=== PATIENT | female | born 1940 | race Caucasian/White ===

== ENCOUNTER 2017-04-11 07:09 | Day surgery (SDC) | payer MEDICARE, OTHER ==
[~2017-04-11 07:09] MED LIST: Cefuroxime 10 MG/ML SYRINGE EYELF SCH; Lidocaine 1% PF 2 ML SDV INJECT SCH; Pilocarpine 4% Ophth Soln 15 ML Bot EYELF SCH
[2017-04-11] MEDS: Polymyxin B/Trimethoprim 10 ML Bottle EYELF SCH ×3 (07:26→08:56)
[2017-04-11] MEDS: Brimonidine 0.2% Ophth Soln 5 ML Bottle EYELF SCH ×3 (07:31→08:56)
--- NOTE | 2017-04-11 07:31 | PCM.PREANE ---
Preanesthetic Assessment - Anesthesia/Transfusion/Family Hx Anesthesia History: No Prior Anesthesia Family History of Anesthesia Reaction: No Transfusion History: No Prior Transfusion(s) - Review of Systems General: No Symptoms Pulmonary: No Symptoms Cardiovascular: Other (HTN) Gastrointestinal: No Symptoms Neurological: No Symptoms Other: Reports: Diabetes (173 at 0728), Thyroid Problems - Physical Assessment NPO Status Date: 04/10/17 NPO Status Time: 18:30 Pulse: 92 O2 Sat by Pulse Oximetry: 97 Respiratory Rate: 16 Blood Pressure: 137/80 Temperature: 35.8 C Weight: 79.832 kg ASA Class: 2 Mental Status: Alert & Oriented x3 Dentition: Reports: Normal Dentition, Dentures (upper), Edentulous Thyro-Mental Finger Breadths: 3 Mouth Opening Finger Breadths: 3 ROM/Head Extension: Full Lungs: Clear to Auscultation, Normal Respiratory Effort Cardiovascular: Regular Rate, Regular Rhythm - Allergies Allergies/Adverse Reactions: Allergies Allergy/AdvReac Type Severity Reaction Status Date / Time No Known Allergies Allergy Verified 04/10/17 15:14 - Blood Blood Available: No Product(s) Available: None - Anesthesia Plan Pre-Op Medication Ordered: None - Acknowledgements Anesthesia Type Planned: MAC Pt an Appropriate Candidate for the Planned Anesthesia: Yes Alternatives and Risks of Anesthesia Discussed w Pt/Guardian: Yes Pt/Guardian Understands and Agrees with Anesthesia Plan: Yes PreAnesthesia Questionnaire - HOME MEDS Home Medications: Home Meds Furosemide [Lasix] 20 mg PO DAILY 04/10/17 [History] Hydrochlorothiazide [Hydrochlorothiazide] 25 mg PO DAILY 04/10/17 [History] Levothyroxine Sodium 88 mcg PO DAILY 04/10/17 [History] Lisinopril [Lisinopril] 40 mg PO DAILY 04/10/17 [History] atorvaSTATin [Lipitor] 10 mg PO DAILY 04/10/17 [History] metFORMIN HCl [Metformin HCl] 1,000 mg PO BID 04/10/17 [History] - CURRENT (IN HOUSE) MEDS Current Meds: Current Medications Brimonidine Tartrate (Alphagan 0.2% Ophth Soln) 0 ml EYELF ASDIRECTED [facility]OG[facility] Stop: 04/11/17 18:00 Cefuroxime Sodium (Zinacef) 0 mg EYELF ASDIRECTED [facility] Stop: 04/11/17 18:00 Lidocaine HCl (Xylocaine-Mpf 1%) 10 ml INJECT ASDIRECTED [facility] Stop: 04/11/17 18:00 Phenylephrine HCl (Sanjay-Synephrine 2.5% Ophth Soln) 0 ml EYELF ASDIRECTED [facility] Stop: 04/11/17 18:00 Pilocarpine HCl (Pilocar 4% Ophth Soln) 0 ml EYELF ASDIRECTED [facility] Stop: 04/11/17 18:00 Polymyxin/Trimethoprim Sulfate (Polytrim Ophth Soln) 0 ml EYELF ASDIRECTED [facility] Stop: 04/11/17 18:00 Tetracaine HCl (Tetracaine 0.5% Steri-Unit Kathie) 0 ml EYELF ASDIRECTED [facility] Stop: 04/11/17 18:00 Tropicamide (Mydriacyl 1% Ophth Soln) 0 ml EYELF ASDIRECTED [facility] Stop: 04/11/17 18:00
[2017-04-11] MEDS: Phenylephrine 2.5% Ophth Soln 2 ML Bot EYELF SCH ×5 (07:35→08:35)
[2017-04-11] MEDS: Tetracaine HCl/PF 0.5% 4 ML Bottle EYELF SCH ×2 (08:24→08:48)
--- NOTE | 2017-04-11 08:56 | PCM48HPAN ---
Post Anesthesia Note - EVALUATION WITHIN 48HRS OF ANESTHETIC Vital Signs in Normal Range: Yes Patient Participated in Evaluation: Yes Respiratory Function Stable: Yes Airway Patent: Yes Cardiovascular Function Stable: Yes Hydration Status Stable: Yes Pain Control Satisfactory: Yes Nausea and Vomiting Control Satisfactory: Yes Mental Status Recovered: Yes
== END 2017-04-11 09:09 | disposition home or self-care (01) ==
LOC: JD.SDS 07:09
PROVIDERS: ATTEND Ophthalmology
DX: E11.36 Type 2 diabetes mellitus with diabetic cataract (principal); I10 Essential (primary) hypertension; E03.9 Hypothyroidism, unspecified; M19.90 Unspecified osteoarthritis, unspecified site; Z79.899 Other long term (current) drug therapy; Z79.84 Long term (current) use of oral hypoglycemic drugs; Z90.49 Acquired absence of other specified parts of digestive tract
CPT/HCPCS: 82962; A9270-GY; C1780

== ENCOUNTER 2017-05-04 08:14 | Day surgery (SDC) | payer MEDICARE, OTHER ==
[~2017-05-04 08:14] MED LIST changes: -Cefuroxime 10 MG/ML SYRINGE EYELF SCH; +Cefuroxime 10 MG/ML SYRINGE EYERT SCH; -Pilocarpine 4% Ophth Soln 15 ML Bot EYELF SCH; +Pilocarpine 4% Ophth Soln 15 ML Bot EYERT SCH
[2017-05-04] MEDS: Polymyxin B/Trimethoprim 10 ML Bottle EYERT SCH ×3 (08:52→10:27)
[2017-05-04] MEDS: Brimonidine 0.2% Ophth Soln 5 ML Bottle EYERT SCH ×3 (08:57→10:27)
[2017-05-04] MEDS: Phenylephrine 2.5% Ophth Soln 2 ML Bot EYERT SCH ×5 (09:03→10:13)
[2017-05-04] MEDS: Tetracaine HCl/PF 0.5% 4 ML Bottle EYERT SCH ×2 (09:57→10:20)
--- NOTE | 2017-05-04 10:09 | PCM.PREANE ---
Preanesthetic Assessment - Anesthesia/Transfusion/Family Hx Anesthesia History: Prior Anesthesia Without Reaction Family History of Anesthesia Reaction: No Transfusion History: No Prior Transfusion(s) Intubation History: Unknown - Review of Systems General: No Symptoms Pulmonary: No Symptoms Cardiovascular: No Symptoms (HTN), Lightheadedness (on occasion) Gastrointestinal: No Symptoms Neurological: No Symptoms Other: Reports: Diabetes (06:30 blood sugar= 149), Thyroid Problems (hypothyroid ) - Physical Assessment NPO Status Date: 05/03/17 NPO Status Time: 18:30 Pulse: 71 O2 Sat by Pulse Oximetry: 97 Respiratory Rate: 16 Blood Pressure: 137/69 Vital Signs: Last Vital Signs Temp 36.5 C 05/04/17 08:40 Pulse 71 05/04/17 08:40 Resp 16 05/04/17 08:40 BP 137/69 05/04/17 08:40 Pulse Ox 97 05/04/17 08:40 Height: 1.68 m Weight: 80.739 kg ASA Class: 2 Mental Status: Alert & Oriented x3 Airway Class: Mallampati = 2 Dentition: Reports: Dentures Thyro-Mental Finger Breadths: 3 Mouth Opening Finger Breadths: 3 ROM/Head Extension: Full Lungs: Clear to Auscultation, Normal Respiratory Effort Cardiovascular: Regular Rate, Regular Rhythm, No Murmurs - Allergies Allergies/Adverse Reactions: Allergies Allergy/AdvReac Type Severity Reaction Status Date / Time No Known Allergies Allergy Verified 05/03/17 14:15 - Anesthesia Plan Pre-Op Medication Ordered: None - Acknowledgements Anesthesia Type Planned: MAC Pt an Appropriate Candidate for the Planned Anesthesia: Yes Alternatives and Risks of Anesthesia Discussed w Pt/Guardian: Yes Pt/Guardian Understands and Agrees with Anesthesia Plan: Yes PreAnesthesia Questionnaire - HOME MEDS Home Medications: Home Meds Hydrochlorothiazide [Hydrochlorothiazide] 25 mg PO DAILY 04/10/17 [History] Levothyroxine Sodium 88 mcg PO DAILY 04/10/17 [History] Lisinopril [Lisinopril] 40 mg PO DAILY 04/10/17 [History] atorvaSTATin [Lipitor] 10 mg PO DAILY 04/10/17 [History] metFORMIN HCl [Metformin HCl] 1,000 mg PO BID 04/10/17 [History] - CURRENT (IN HOUSE) MEDS Current Meds: Current Medications Brimonidine Tartrate (Alphagan 0.2% Oph Soln) 0 ml EYERT ASDIRECTED [facility] Last Admin: 05/04/17 09:40 Dose: 1 drop Cefuroxime Sodium (Zinacef) 0 mg EYERT ASDIRECTED [facility] Lidocaine HCl (Xylocaine-Mpf 1%) 10 ml INJECT ASDIRECTED [facility] Phenylephrine HCl (Sanjay-Synephrine 2.5% Oph Soln) 0 ml EYERT ASDIRECTED ROGELIO Last Admin: 05/04/17 09:45 Dose: 1 drop Pilocarpine HCl (Pilocar 4% Oph Soln) 0 ml EYERT ASDIRECTED [facility]OGELIO Polymyxin/Trimethoprim Sulfate (Polytrim Ophth Soln) 0 ml EYERT ASDIRECTED [facility] Last Admin: 05/04/17 09:35 Dose: 1 drop Tetracaine HCl (Tetracaine 0.5% Steri-Unit Kathie) 0 ml EYERT ASDIRECTED [facility] Last Admin: 05/04/17 09:57 Dose: 3 drop Tropicamide (Mydriacyl 1% Oph Soln) 0 ml EYERT ASDIRECTED [facility] Stop: 05/07/17 06:01 Last Admin: 05/04/17 09:50 Dose: 1 drop
== END 2017-05-04 10:37 | disposition home or self-care (01) ==
LOC: JD.SDS 08:14
PROVIDERS: ATTEND Ophthalmology
DX: H25.813 Combined forms of age-related cataract, bilateral (principal); E11.9 Type 2 diabetes mellitus without complications; H02.834 Dermatochalasis of left upper eyelid; H02.831 Dermatochalasis of right upper eyelid; M19.90 Unspecified osteoarthritis, unspecified site; E03.9 Hypothyroidism, unspecified; I10 Essential (primary) hypertension; Z90.49 Acquired absence of other specified parts of digestive tract; Z79.84 Long term (current) use of oral hypoglycemic drugs; Z79.899 Other long term (current) drug therapy
CPT/HCPCS: 66984; C1780; J0697; A9270-GY